=== PATIENT | female | born 1950 | race Caucasian/White ===

== ENCOUNTER 2023-08-08 14:15 | Emergency (ER) | payer MEDICARE, BC, SELFPAY ==
[2023-08-08 14:19] VITALS: BP 161/100
[2023-08-08 14:41] LABS: % Basophils 0.6 % (0-2); % Eosinophils 1.6 % (0-6); % Immature Granulocytes 0.3 % (0-0.5); % Lymphocytes 39.7 % (20.5-51.1); % Monocytes 6.7 % (1.7-9.3); % Neutrophils 51.1 % (42.2-75.2); Absolute Eosinophils 0.1 10^3/uL (0-0.7); Absolute Lymphocytes 2.7 10^3/uL (1.2-3.4); Absolute Monocytes 0.5 10^3/uL (0.1-0.6); Absolute Neutrophils 3.5 10^3/uL (1.4-6.5); Hemoglobin 13.2 g/dL (12.0-16.0); Mean Corp Hgb Conc. 35.7 g/dL (33.0-37.0); Mean Corpuscular Hgb 33.4 pg (27.0-31.0); Mean Corpuscular Volume 93.7 fL (81.0-99.0); Mean Platelet Volume 8.3 fL (7.4-10.4); Nucleated Red Blood Cells % 0 %; Platelet Count 253 10^3/uL (130-400); Red Blood Cell Count 3.95 10^6/uL (4.20-5.40); Red Cell Dist. Width 12.2 % (11.5-14.5); White Blood Cell Count 6.9 10^3/uL (4.8-10.8)
[2023-08-08 15:01] LABS: ALT (SGPT) 31 U/L (0-35); AST (SGOT) 28 U/L (14-36); Albumin 4.4 g/dl (3.5-5.0); Alkaline Phosphatase 63 U/L (38-126); Blood Urea Nitrogen 14 mg/dl (7-17); Calcium 9.2 mg/dl (8.4-10.2); Carbon Dioxide 28 mmol/L (22-30); Chloride 99 mmol/L (98-107); Glucose 109 mg/dl (70-99); Potassium 4.1 mmol/L (3.5-5.1); Sodium 132 mmol/L (135-145); Total Bilirubin 0.3 mg/dl (0.2-1.3); Total Protein 7.1 g/dl (6.3-8.2); eGFR > 60.00
[2023-08-08 16:10] VITALS: BP 170/77
--- NOTE | 2023-08-08 16:46 | ED.GENMED ---
History of Present Illness
General
Chief Complaint: Fainting/Passed Out
Source: patient
Exam Limitations: none
Time Seen by Provider: 08/08/23 16:28
Nursing documentation reviewed up to this point in time: agreed with
Travel History
Have you had any contact with someone who has COVID-19?: No
Do you have any symptoms of coronavirus? Fever > 100 degrees, chills, cough, shortness of breath, sore throat, loss of taste or smell, muscle aches, or headache?: No
History of Present Illness
History of Present Illness:
73-year-old female with a past medical history of hypothyroidism, Sjogren's disease, Raynaud's, GERD, esophageal spasms, arthritis who presents to the emergency room for evaluation after syncopal event. Of note, she says that she had a recent
steroid injection for arthritis/sciatica in the left low back/hip. Patient reports that yesterday she was at [facility] waiting to get her shingles vaccine. She said that she started having chest discomfort which she describes as an intense pressure that
she says that she has a history of esophageal spasms that cause these types of symptoms very frequently. She says that she has been prescribed nitroglycerin to take as needed for esophageal spasms but typically she will just drink a glass of warm
water and they will resolve. She says that because she was out and about she did not have access to warm water but she did have her nitroglycerin on her and so she took a dose. Esophageal spasms resolved and she went inside to buy some water and
to get her vaccine. She says that when she was inside she began to feel lightheaded and had a syncopal event. She says she did not sustain any traumatic injuries was helped up by a bystander who is a chemic mangler/EMT. She was told it was likely
related to the nitroglycerin. She says that this morning she still felt mildly dizzy and was concerned of potential interaction between her recent steroid injection and nitroglycerin and so she decided to come to the emergency room to be assessed
for symptoms. She denies any chest pain at present. She denies any shortness of breath. She denies any palpitations. She denies any headache. Denies any abdominal or flank pain.
Review of Systems
Review of Systems
All Other Systems: ROS reviewed and negative except as documented in HPI and ROS
Constitutional: Denies fever or chills
EENT: Denies sore throat or runny nose
Respiratory: Denies cough or trouble breathing
Cardiac: Denies chest pain or palpitations
ABD/GI: Denies abdominal pain, nausea or vomiting
: Denies flank pain
Musculoskeletal: Denies neck pain or back pain
Neurological: Reports dizzy; Denies headache, weakness or numbness
Phy Exam
Physical Exam
Physical Exam:
General: Awake, alert, oriented x3; no acute distress
Head: Normocephalic, atraumatic
Eyes: Conjunctiva normal
Throat: Airway intact, handling secretions
Neck: Trachea midline, supple without meningismus
Lungs: Clear to auscultation bilaterally, no wheezing, rales, rhonchi
Heart: Regular rate and rhythm, no murmurs, gallops, or rubs
Abd: Soft, non distended, nontender with no masses
Neuro: Cranial nerves grossly intact, speech fluid
Skin: no rash
Extremities: Warm and well-perfused
Scores
Heart Failure Risk
Heart Failure Risk Score: Not Applicable
Heart Score for Chest Pain Patients
STEMI patient?: Not applicable
Withdrawal Assessment of Alcohol
Withdrawal Assessment Completed?: Not applicable
Course
Orders/Labs/Results
Orders:
Orders
08/08/23 14:25
Electrocardiogram (*1) Urgent
Reason for Study: Vertigo / Dizzy
EKG- Treatment ONCE
08/08/23 14:35
Complete Blood Count/With Diff Urgent
Comprehensive Metabolic Panel Urgent
08/08/23 17:07
Troponin I Urgent
Abnormal Lab Results
08/08/23
14:35
RBC 3.95 L 10^6/uL
(4.20-5.40)
MCH 33.4 H pg
(27.0-31.0)
Sodium 132 L mmol/L
(135-145)
Glucose 109 H mg/dl
(70-99)
08/08/23 14:35
08/08/23 14:35
Vital Signs
Initial and Last Documented VS:
Initial Vital Signs
Temp Pulse Resp BP Pulse Ox
36.5 C 97 18 161/100 100
08/08/23 14:19 08/08/23 14:19 08/08/23 14:19 08/08/23 14:19 08/08/23 14:19
Last Documented Vital Signs
Temp Pulse Resp BP Pulse Ox
36.5 C 83 18 170/77 100
08/08/23 14:19 08/08/23 16:10 08/08/23 16:10 08/08/23 16:10 08/08/23 16:10
MDM/Problems Addressed
Differential Diagnosis Includes:
Vasodilation leading to syncope status post nitroglycerin, postural syncope, vasovagal syncope, anemia, electrolyte derangement, dysrhythmia, acute PA
MDM/Problems Addressed:
73-year-old female presents to the emergency room for evaluation after a syncopal event that occurred shortly after she took a nitroglycerin for one of her typical episodes of esophageal spasm. She still felt a little dizzy today and was concerned
that there could potentially be an interaction between nitroglycerin and her recent steroid injection and so she came to the emergency room to be assessed. She is hypertensive here but has otherwise normal vitals. Physical exam as above. Her EKG
shows sinus rhythm with a right bundle branch block and some inferior T wave inversions, biatrial enlargement. I do not have an old EKG for comparison the patient has a report from her most recent EKG in July 2020 which showed that she had a right
bundle branch block and atrial enlargement, sinus tachycardia at that point. Plan to place an IV check labs including CBC and CMP. Will check a troponin. Will monitor on telemetry. Reassess after the above.
Initial labs reviewed: CBC and CMP unremarkable. Troponin pending. Patient remains awake and alert with stable vitals. Continue to monitor.
Troponin undetectable. Patient remains mildly hypertensive but with otherwise normal vitals. She is asymptomatic on reassessment. I suspect that this was likely syncope related to her dose of nitroglycerin--she says that she typically does not
use the nitroglycerin and only drinks 1 glass of water and so this was somewhat atypical. No clear indication for admission at this point in time. Advised her to follow-up with her primary care physician as an outpatient for reassessment. She
feels comfortable with this plan. Spoke about return precautions and all questions answered.
Chronic conditions affecting care:
Esophageal spasm
*EKG
Interpreted by ED Provider?: Yes
Heart Rate: 88
Rate: normal
Rhythm: sinus
[place]: normal axis
Interval: normal interval
QRS Pattern: right bundle branch block
Ischemia: T-wave inversion
*Critical Care Note
Total Time (30-74mins, 75-104mins- exclusive of procedures): Not Applicable
Data Reviewed
Source: patient, records and spouse
ED Attending Note
-
Portions of this chart may have been created with voice recognition software.� Occasional wrong word or��sound alike� substitutions may have occurred due to the inherent limitations of voice recognition software.
Discharge Plan
Departure
Patient Disposition: Home (Routine Discharge)
Date of Disposition: 08/08/23
Time of Disposition: 17:55
Patient with high blood pressure during this ER visit?: Yes
Discharge Problem:
Syncope, Hypertension
Instructions: Syncope (Fainting) (DC), BLOOD PRESSURE
Referrals:
Sukhwinder Harvey MD [Family Provider] - Follow up in 2-3 days
Activity Restrictions/Additional Instructions:
Thank you for visiting the Emergency Department at [facility].
1. Please schedule a follow up appointment as directed. Call first thing tomorrow morning to make an appointment.
2. If indicated, please take your medications as instructed and indicated on discharge paperwork.
3. If any of your symptoms do not improve, or persist, or become more severe within 6-12 hours, please return to the emergency department for further care.
4. Please return to the emergency department if you develop a headache, neck pain/stiffness, fever greater than 100.4F, chest pain, shortness of breath, persistent nausea, vomiting, slurred speech, difficulty walking, numbness/tingling, weakness,
signs of infection or any other symptoms that are worrisome to you.
Please call [phone] if you have any questions.
Interventions
Interventions:
*Risk Screen - Suicide Last Done: 08/08/23 14:19
*General Assessment Last Done: 08/08/23 14:19
*Neglect/Abuse Screening Last Done: 08/08/23 14:19
ED- Fall Risk Assessment Last Done: 08/08/23 16:57
*ED COVID-19 Vaccine History Last Done: 08/08/23 14:19
ED- Cardiac Assessment Last Done: 08/08/23 16:57
ED- Neurological Assessment Last Done: 08/08/23 16:57
Discharge Date and Time
Print Language: NEPALESE
[2023-08-08 16:55] VITALS: BMI 19.1
[2023-08-08 17:39] LABS: Troponin I < 0.012 ng/ml
[2023-08-08 18:00] VITALS: BP 149/86
== END 2023-08-08 18:05 | disposition home or self-care (01) ==
LOC: EMR 14:15
PROVIDERS: Emergency Medicine; EMERGENCY PHYSICIAN Emergency Medicine; FAMILY PHYSICIAN Family Medicine
DX: R55 Syncope and collapse (principal); I11.9 Hypertensive heart disease without heart failure; I45.10 Unspecified right bundle-branch block; K22.4 Dyskinesia of esophagus
CPT/HCPCS: 99284; 80053; 84484; 85025; 93005